=== PATIENT | female | born 1980 | race Caucasian/White ===

== ENCOUNTER 2020-01-25 12:11 | Outpatient (CLI) | payer MEDICARE, SELFPAY ==
[2020-01-25 12:38] LABS: Prothrombin Time 10.7 Seconds (9.64-11.0)
== END 2020-01-25 12:12 | disposition home or self-care (01) ==
PROVIDERS: PCP Physician Assistant; Visit Provider Physician Assistant
DX: Z79.01 Long term (current) use of anticoagulants (principal)
CPT/HCPCS: 36415; 85610

== ENCOUNTER 2020-01-31 11:48 | Outpatient (CLI) | payer MEDICARE, SELFPAY ==
[2020-01-31 12:18] LABS: Prothrombin Time 10.3 Seconds (9.64-11.0)
[2020-01-31 12:30] LABS: Blood Urea Nitrogen 7 mg/dL (7-18); Calcium 9.1 mg/dL (8.5-10.1); Carbon Dioxide 27 mmol/L (21-32); Chloride 115 mmol/L (98-108); Estimated Glomerular Filt Rate > 60; Glucose 160 mg/dL (70-99); Magnesium 1.6 mg/dL (1.8-2.4); Osmolality Calculated 321 mOsm/kg (285-295); Sodium 155 mmol/L (136-145)
== END 2020-01-31 11:49 | disposition home or self-care (01) ==
LOC: CHSLAB 11:51
PROVIDERS: PCP Physician Assistant; Visit Provider Physician Assistant
DX: Z79.01 Long term (current) use of anticoagulants (principal); E83.42 Hypomagnesemia
CPT/HCPCS: 36415; 80048; 83735; 85610

== ENCOUNTER 2020-02-06 10:43 | Outpatient (CLI) | payer MEDICARE, SELFPAY ==
[2020-02-06 11:09] LABS: INR 1.1; Prothrombin Time 10.9 Seconds (9.64-11.0)
[2020-02-06 11:10] LABS: Alanine Aminotransferase 14 U/L (14-59); Albumin Level 3.6 g/dL (3.4-5.0); Alkaline Phosphatase 118 U/L (46-116); Aspartate Amino Transferase 11 U/L (15-37); Bilirubin,Total 0.5 mg/dL (0.00-1.00); Blood Urea Nitrogen 10 mg/dL (7-18); Calcium 9.1 mg/dL (8.5-10.1); Carbon Dioxide 29 mmol/L (21-32); Chloride 101 mmol/L (98-108); Estimated Glomerular Filt Rate > 60; Glucose 133 mg/dL (70-99); Magnesium 1.6 mg/dL (1.8-2.4); Osmolality Calculated 289 mOsm/kg (285-295); Sodium 139 mmol/L (136-145); Total Protein 7.8 g/dL (6.4-8.2)
== END 2020-02-06 10:44 | disposition home or self-care (01) ==
PROVIDERS: PCP Physician Assistant; Visit Provider Physician Assistant
DX: Z79.01 Long term (current) use of anticoagulants (principal); E87.0 Hyperosmolality and hypernatremia
CPT/HCPCS: 36415; 80053; 83735; 85610

== ENCOUNTER 2020-03-05 11:36 | Outpatient (CLI) | payer MEDICARE, MEDICAID, SELFPAY ==
--- NOTE | ~2020-03-05 | XR_ITS ---
XR elbow LT min 3V DATE: 03/05/2020 12:15 INDICATION: Olecranon bursitis. Left elbow pain. TECHNIQUE: 4 views COMPARISON: None FINDINGS: There is prominent dorsal soft tissue swelling consistent with clinical history of olecrano n bursitis. No fracture or dislocation or joint effusion of the left elbow. No periosteal reaction or bone destru ction. IMPRESSION: Soft tissue swelling over the olecranon process consistent with clinical history of olecr anon bursitis Reviewed, dictated and finalized at location A. IMPRESSION: Soft tissue swelling over the olecranon process consistent with cli nical history of olecranon bursitis
--- NOTE | ~2020-03-05 | XR_ITS ---
EXAMINATION: XR foot LT min 3V EXAM DATE: 03/05/2020 12:15 INDICATION: No known recent injury provided at this time. Pain of the left foot. TECHNIQUE: Left foot dorsoplantar, lateral and oblique projections obtained and reviewed. Comparison is made to prior examination from 01/10/2018. FINDINGS: Left metatarsal bones unremarkable. Small inferior calcaneal spur. There are no acute f ractures or dislocations identified. There is no subcutaneous gas. The soft tissue is unremarkable. There are no radiopaque foreign bodies. IMPRESSION: 1. Unremarkable XR foot LT min 3V exam. Reviewed, dictated and finalized at location A.
[2020-03-05 12:04] LABS: INR 1.1; Prothrombin Time 11.3 Seconds (9.64-11.0)
== END 2020-03-05 11:37 | disposition home or self-care (01) ==
LOC: CHSLAB 11:43
PROVIDERS: PCP Physician Assistant; Visit Provider Physician Assistant
DX: Z79.01 Long term (current) use of anticoagulants (principal); M70.22 Olecranon bursitis, left elbow; M79.672 Pain in left foot
CPT/HCPCS: 36415; 73080; 73630; 85610